=== PATIENT | male | born 1990 ===

== ENCOUNTER 2023-01-11 06:40 | Day surgery (SDC) | payer OTHER ==
[~2023-01-11] VITALS: Ht 182.9 cm; Wt 104.3 kg
[2023-01-11] MEDS ORDERED: OXYC1TAB9 PO (10:33)
== END 2023-01-11 16:15 | disposition home or self-care (01) ==
LOC: CIR.AMB 06:40
PROVIDERS: ATTEND Surgery
DX: K60.3 Anal fistula (principal); K62.89 Other specified diseases of anus and rectum; Z20.822 Contact with and (suspected) exposure to COVID-19; Z91.013 Allergy to seafood

== ENCOUNTER → 2023-06-28 | Day surgery (SDC) | payer OTHER ==
[~2023-06-28] VITALS: Ht 182.9 cm; Wt 97.5 kg
[~2023-06-28] MED LIST: OXYC1TAB9 PO
== END | disposition home or self-care (01) ==
LOC: ADM 06-21 11:15 → CIR.AMB 06:46
PROVIDERS: ATTEND Surgery
DX: K60.3 Anal fistula (principal); K62.89 Other specified diseases of anus and rectum; I10 Essential (primary) hypertension; Z20.822 Contact with and (suspected) exposure to COVID-19; Z91.013 Allergy to seafood